=== PATIENT | male | born 1985 | race Caucasian/White ===

== ENCOUNTER 2023-03-04 12:25 | Emergency (ER) | payer OTHER ==
--- NOTE | 2023-03-04 12:35 | ED Physician Documentation ---
History of Present Illness - Stated complaint Stated Complaint: HORNET STING - Additonal information Additional information: 37-year-old male presents emergency department for evaluation after a hornet/bee envenomation. 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 He was stung on the left ear. He does have some left ear swelling. However shortly thereafter he began to have some generalized pruritus and developed some hives on his arms chest and abdomen. He had no shortness of breath, chest pain, tongue or lip swelling or any difficulty swallowing or speaking. EMS was summoned and they did give the patient 50 mg of Benadryl in route. He does have a large area of hives on his left arm but is otherwise comfortable. Denies any pertinent past medical history or medications. Review of Systems Constitutional: denies: Fever Nose: reports: Reviewed and negative Cardiac: reports: Reviewed and negative Respiratory: reports: Reviewed and negative Skin: reports: Rash, Bite / sting Musculoskeletal: reports: Reviewed and negative PD PAST MEDICAL HISTORY - Present Medications Home Medications: Ambulatory Orders Medication Instructions Recorded Confirmed EPINEPHrine [Epinephrine] 0.3 mg IJ ONCE PRN #1 each 03/04/23 Famotidine/Ca Carb/Mag Hydrox 1 each PO BID 2 Days #4 ea 03/04/23 [Pepcid Complete Tablet Chew] diphenhydrAMINE [Benadryl] 25 mg PO BID 2 Days #2 cap 03/04/23 predniSONE [Deltasone] 40 mg PO DAILY 2 Days #4 tablet 03/04/23 - Allergies Allergies/Adverse Reactions: Allergies Allergy/AdvReac Type Severity Reaction Status Date / Time albuterol Allergy Anaphylaxis Verified 03/04/23 12:33 bee venom protein (honey bee) Allergy Hives Verified 03/04/23 12:33 PD ED PE NORMAL - General General: Alert and oriented X 3, No acute distress, Well developed/nourished - HEENT HEENT: Atraumatic, Moist mucous membranes, Pharynx benign (No tongue, lip swelling. Normal phonation. Normal swallow.) - Neck Neck: Supple, no meningeal sign, No adenopathy - Cardiac Cardiac: RRR, No murmur, Strong equal pulses - Respiratory Respiratory: No respiratory distress, Clear bilaterally - Back Back: No CVA TTP, No spinal TTP - Derm Derm: Normal color, Warm and dry. No: No rash (Scattered urticaria on his chest and torso. Larger area of urticaria on the left wrist and forearm) Results - Vitals Vitals: Vital Signs - 24 hr 03/04/23 12:29 Temperature 36.4 C L Heart Rate 76 Respiratory 20 Rate Blood Pressure 143/81 H O2 Saturation 96 Oxygen O2 Source Room air PD Medical Decision Making - ED course Complexity details: reviewed results, re-evaluated patient, d/w patient ED course: 37-year-old male presents emergency department after hymenoptera envenomation while he was at his worksite. He was stung in the left ear. Shortly after getting stung he developed some hives especially on the left arm and torso. He had no tongue or lip swelling difficulty speaking or swallowing. EMS was summoned to the worksite they gave the patient 50 mg of Benadryl which seemed to improve the hives. Presentation in the emergency department he was alert and well-appearing. He did have some very mild hypertension. Clinically he had a systemic reaction though not anaphylaxis. Here in the emergency department I did give the patient a single dose of 125 mg Solu-Medrol IV as well as 40 mg of Pepcid. On reevaluation the hives have improved by about 80%. While here in the ER and on monitor he has had no further progression of symptoms feels comfortable with discharge home. I am recommending an additional 2 days of steroids, Benadryl and Pepcid. I discussed with the patient that the next bee sting could result in an anaphylactic reaction and because of this fear I am also prescribing an epinephrine pen though epinephrine was not administered with today's ED visit. He is discharged home in stable condition with usual emergent return precautions discussed for worsening symptoms Departure - Departure Disposition: 01 Home, Self Care Clinical Impression: Bee sting reaction Qualifiers: Encounter type: initial encounter Injury intent: accidental or unintentional Qualified Code(s): T63.441A - Toxic effect of venom of bees, accidental (unintentional), initial encounter Instructions: ED Bite Sting Insect Gen Allergic React Prescriptions: diphenhydrAMINE [Benadryl] 25 mg PO BID 2 Days #2 cap predniSONE [Deltasone] 40 mg PO DAILY 2 Days #4 tablet EPINEPHrine [Epinephrine] 0.3 mg IJ ONCE PRN #1 each PRN Reason: Anaphylaxis Famotidine/Ca Carb/Mag Hydrox [Pepcid Complete Tablet Chew] 1 each PO BID 2 Days #4 ea Comments: As discussed at the bedside it looks like you had a systemic though not an anaphylactic reaction to the bee sting today. You were given Benadryl by the paramedics and I did give you a dose of methylprednisolone or a steroid here in the ER and on reevaluation your hives are improving. I would like you to continue to take Benadryl 25 mg twice a day for the next several days as well as Pepcid 20 mg twice daily for the next 2 to 3 days. I think it would be important for you to finish an additional 2 days of prednisone which I have sent to the pharmacy. It is possible that in the future with other bee envenomation's you could have a severe life-threatening reaction called anaphylaxis. Because of this risk I am prescribing you an epinephrine pen that you should carry with you at all times. Please return immediately to the emergency department if you have any worsening symptoms, difficulty speaking swallowing breathing, tongue or lip swelling
[2023-03-04 12:36] VITALS: BP 143/81
[2023-03-04] MEDS: methylPREDNISolone SUCCINATE 125 MG/2 ML VIAL IVP STA (12:41)
[2023-03-04] MEDS: FAMOTIDINE 20 MG/2 ML VIAL IVP STA (12:43)
[2023-03-04] MEDS ORDERED: FAMOTIDINE 20 MG/2 ML VIAL IVP ONE (12:48)
== END 2023-03-04 13:45 | disposition home or self-care (01) ==
LOC: EDUNIT# → ED 12:25
DX: T63.441A Toxic effect of venom of bees, accidental (unintentional), initial encounter (principal)
CPT/HCPCS: 96374; 96375; 99283

== ENCOUNTER 2023-03-07 21:43 | Emergency (ER) | payer OTHER ==
[2023-03-07] MEDS ORDERED: SODIUM CHLORIDE 0.9% 1,000 ML IV STA (22:24)
[2023-03-07 22:34] LABS: BASOPHILS # (AUTO) 0.1 10^3/uL (0.0-0.1); BASOPHILS % (AUTO) 0.7 %; EOSINOPHILS # (AUTO) 0.1 10^3/uL (0.0-0.7); EOSINOPHILS % (AUTO) 1.4 %; HCT - HEMATOCRIT 41.6 % (42.0-52.0); HGB - HEMOGLOBIN 14.2 g/dL (14.0-18.0); LYMPHOCYTES % (AUTO) 28.4 %; MEAN CORPUSCULAR HGB CONC 34.1 g/dL (32.0-36.0); MEAN CORPUSCULAR VOLUME 90.8 fL (80.0-94.0); MEAN PLATELET VOLUME 9.8 fL (7.4-11.4); MONOCYTES # (AUTO) 0.6 10^3/uL (0.0-1.0); NEUTROPHILS # (AUTO) 4.3 10^3/uL (1.5-6.6); NEUTROPHILS % (AUTO) 61.1 %; PLT - PLATELET COUNT 246 10^3/uL (130-450); RED BLOOD COUNT 4.58 10^6/uL (4.70-6.10); RED CELL DISTRIBUTION WIDTH 12.3 % (12.0-15.0)
[2023-03-07 23:18] LABS: ALBUMIN 4.5 g/dL (3.2-5.5); ALBUMIN/GLOBULIN RATIO 1.5 (1.0-2.2); BILIRUBIN,TOTAL 0.4 mg/dL (0.2-1.0); CALCIUM 9.3 mg/dL (8.5-10.3); POTASSIUM 4.5 mmol/L (3.5-5.0); TOTAL PROTEIN 7.6 g/dL (6.7-8.2)
[2023-03-07 23:32] LABS: BILIRUBIN,URINE NEGATIVE (NEGATIVE); GLUCOSE, URINE (UA) NEGATIVE (NEGATIVE); KETONES,URINE (UA) NEGATIVE (NEGATIVE); LEUKOCYTE ESTERASE, URINE NEGATIVE (NEGATIVE); NITRITE,URINE NEGATIVE (NEGATIVE); OCCULT BLOOD,URINE NEGATIVE (NEGATIVE); PH,URINE 6.5 PH (5.0-7.5); PROTEIN,URINE NEGATIVE (NEGATIVE); UROBILINOGEN,URINE 0.2 (NORMAL) E.U./dL (NORMAL)
[2023-03-07 23:33] LABS: CLARITY,URINE CLEAR (CLEAR)
--- NOTE | 2023-03-07 23:41 | ED Physician Documentation ---
History of Present Illness - Stated complaint Stated Complaint: LIGHT HEADED/DIZZY/DIARRHEA - Chief complaint Chief Complaint: General - History obtained from History obtained from: Patient - Additonal information Additional information: 37-year-old man presented to the emergency department with jitteriness, anxiety, and dizziness intermittently today. He was treated with steroids, Benadryl, and Pepcid a few days ago for bee sting and has been taking a course of steroids but stopped it for the first time today. Denies other symptoms PD PAST MEDICAL HISTORY - Present Medications Home Medications: Ambulatory Orders Medication Instructions Recorded Confirmed EPINEPHrine [Epinephrine] 0.3 mg IJ ONCE PRN #1 each 03/04/23 Famotidine/Ca Carb/Mag Hydrox 1 each PO BID 2 Days #4 ea 03/04/23 [Pepcid Complete Tablet Chew] diphenhydrAMINE [Benadryl] 25 mg PO BID 2 Days #2 cap 03/04/23 predniSONE [Deltasone] 40 mg PO DAILY 2 Days #4 tablet 03/04/23 - Allergies Allergies/Adverse Reactions: Allergies Allergy/AdvReac Type Severity Reaction Status Date / Time albuterol Allergy Anaphylaxis Verified 03/04/23 12:33 bee venom protein (honey bee) Allergy Hives Verified 03/04/23 12:33 - Social History Does the pt smoke?: Yes Smoking Status: Current every day smoker PD ED PE NORMAL - Vitals Vital signs reviewed: Yes - General General: Alert and oriented X 3, No acute distress - HEENT HEENT: Atraumatic, PERRL, EOMI, Moist mucous membranes, Pharynx benign - Neck Neck: Supple, no meningeal sign - Cardiac Cardiac: RRR - Respiratory Respiratory: No respiratory distress, Clear bilaterally - Derm Derm: Normal color, Warm and dry - Extremities Extremities: No deformity - Neuro Neuro: No motor deficit, No sensory deficit - Psych Psych: Normal mood, Normal affect Results - Vitals Vitals: Vital Signs - 24 hr 03/07/23 21:47 Temperature 96.4 C H Heart Rate 92 Respiratory 18 Rate Blood Pressure 176/92 H O2 Saturation 97 Oxygen O2 Source Room air - Labs Labs: Laboratory Tests 03/07/23 03/07/23 03/07/23 22:30 22:30 23:17 WBC 7.0 RBC 4.58 L Hgb 14.2 Hct 41.6 L MCV 90.8 MCH 31.0 MCHC 34.1 RDW 12.3 Plt Count 246 MPV 9.8 Neut # (Auto) 4.3 Lymph # (Auto) 2.0 [place] # (Auto) 0.6 Eos # (Auto) 0.1 Baso # (Auto) 0.1 Absolute Nucleated RBC 0.00 Nucleated RBC % 0.0 Sodium 140 Potassium 4.5 Chloride 104 Carbon Dioxide 28 Anion Gap 8.0 BUN 18 Creatinine 1.0 Estimated GFR (MDRD) 85 L Glucose 100 Calcium 9.3 Total Bilirubin 0.4 AST 20 ALT 19 Alkaline Phosphatase 58 Total Protein 7.6 Albumin 4.5 Globulin 3.1 Albumin/Globulin Ratio 1.5 Lipase 31 Urine Color YELLOW Urine Clarity CLEAR Urine pH 6.5 Ur Specific [place] 1.010 Urine Protein NEGATIVE Urine Glucose (UA) NEGATIVE Urine Ketones NEGATIVE Urine Occult Blood NEGATIVE Urine Nitrite NEGATIVE Urine Bilirubin NEGATIVE Urine Urobilinogen 0.2 (NORMAL) Ur Leukocyte Esterase NEGATIVE Ur Microscopic Review NOT INDICATED Urine Culture Comments NOT INDICATED PD Medical Decision Making - ED course ED course: 37yM p/w dizziness and anxiety today after stopping his prednisone course he had been taking after allergic reaction to bee sting. patient otherwise well appearing with benign exam. cbc, abdominal panel within normal limits. discussed with patient and discussed return precautions. he can f/u with his primary care provider routinely. Departure - Departure Disposition: 01 Home, Self Care Clinical Impression: Anxiety, Dizziness, Feeling jittery Condition: Stable Comments: You are seen in the emergency department for medical evaluation. Your vital signs, exam, and lab work including CBC and abdominal panel looked normal. Please follow-up with your primary care provider routinely and return to the emergency department if you have other concerns
[2023-03-07 23:46] VITALS: BP 137/89
== END 2023-03-07 23:44 | disposition home or self-care (01) ==
LOC: ED 21:43
DX: F41.9 Anxiety disorder, unspecified (principal); R42 Dizziness and giddiness; R45.0 Nervousness; F17.200 Nicotine dependence, unspecified, uncomplicated
CPT/HCPCS: 36415; 80053; 81001; 81003; 83690; 85025; 87086; 99283

== ENCOUNTER 2023-04-11 16:32 | Emergency (ER) | payer OTHER ==
[2023-04-11] MEDS ORDERED: predniSONE 20 MG TABLET PO STA (16:47)
--- NOTE | 2023-04-11 16:50 | ED Physician Documentation ---
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 Today he was stung on the left forearm by a yellow jacket. He only developed pain at the site and this happened at 4:19 PM. He did not develop any symptoms of anaphylaxis. He did self inject EpiPen immediately afterward. Other than pain and swelling at the site on the left forearm he has no other symptoms. PD PAST MEDICAL HISTORY - Present Medications Home Medications: Ambulatory Orders Medication Instructions Recorded Confirmed EPINEPHrine [Epinephrine] 0.3 mg IJ ONCE PRN #1 each 03/04/23 04/11/23 EPINEPHrine [Epinephrine] 0.3 mg IJ ONCE PRN #2 each 04/11/23 predniSONE [Deltasone] 60 mg PO DAILY 2 Days #6 tablet 04/11/23 - Allergies Allergies/Adverse Reactions: Allergies Allergy/AdvReac Type Severity Reaction Status Date / Time albuterol Allergy Anaphylaxis Verified 04/11/23 16:40 bee venom protein (honey bee) Allergy Hives Verified 04/11/23 16:40 - Social History Does the pt smoke?: Yes Smoking Status: Current every day smoker PD ED PE NORMAL - Vitals Vital signs reviewed: Yes - General General: Alert and oriented X 3, No acute distress - HEENT HEENT: Pharynx benign - Respiratory Respiratory: No respiratory distress, Clear bilaterally - Abdomen Abdomen: Non tender - Derm Derm: Other (There is a red area about the size of a quarter on the posteromedial mid left forearm. No diffuse hives or other rash.) - Neuro Neuro: Alert and oriented X 3, Normal speech Results - Vitals Vitals: Vital Signs - 24 hr 04/11/23 04/11/23 16:35 17:03 Temperature 36.8 C Heart Rate 91 73 Respiratory 18 18 Rate Blood Pressure 133/74 H 128/70 O2 Saturation 97 96 Oxygen O2 Source Room air PD Medical Decision Making - ED course ED course: He was observed for about 2 hours after the sting without any development of any Symptoms concerning for anaphylaxis. [id number] completed and filed. Departure - Departure Disposition: 01 Home, Self Care Clinical Impression: Local reaction to bee sting Qualifiers: Encounter type: initial encounter Injury intent: accidental or unintentional Qualified Code(s): T63.441A - Toxic effect of venom of bees, accidental (unintentional), initial encounter Condition: Good Record reviewed to determine appropriate education?: Yes Instructions: ED Bite Sting Insect Local Allergic React Prescriptions: predniSONE [Deltasone] 60 mg PO DAILY 2 Days #6 tablet EPINEPHrine [Epinephrine] 0.3 mg IJ ONCE PRN #2 each PRN Reason: Allergy Symptoms Forms: PCP List
[2023-04-11 17:55] VITALS: BP 120/72; O2SAT 98
== END 2023-04-11 17:51 | disposition home or self-care (01) ==
LOC: ED 16:32
DX: T63.461A Toxic effect of venom of wasps, accidental (unintentional), initial encounter (principal); F17.200 Nicotine dependence, unspecified, uncomplicated
CPT/HCPCS: 99282; 99283; J7512

== ENCOUNTER 2023-08-16 08:27 | Emergency (ER) | payer OTHER ==
[2023-08-16 08:45] VITALS: BP 139/81; O2SAT 99
--- NOTE | 2023-08-16 09:15 | ED Physician Documentation ---
PD HPI BACK PAIN - Stated complaint Stated Complaint: BACK INJ - Chief complaint Chief Complaint: Back Pain - History obtained from History obtained from: Patient - Additional information Additional information: Patient is a 37-year-old male presenting for evaluation of low back pain that started approximately 30 to 40 minutes ago while at work. Patient was lifting an 80 pound wheelbarrow and twisted and felt a pop in his back that caused sudden pain. The pain does not radiate and is localized to the lower back. Denies prior injuries that he is aware of to the back but does report at times he has had pain in the back that he attributes to usual aches and pains from his work. Denies numbness in his legs. No bowel or bladder incontinence. No fever. No IV drug use. Does not take a blood thinner. No falls or other injury. Review of Systems Constitutional: denies: Fever Cardiac: denies: Chest pain / pressure Respiratory: denies: Dyspnea GI: denies: Abdominal Pain, Vomiting : denies: Incontinent Musculoskeletal: reports: Back pain PD PAST MEDICAL HISTORY - Past Medical History Past Medical History: No - Past Surgical History Past Surgical History: Yes - Present Medications Home Medications: Ambulatory Orders Medication Instructions Recorded Confirmed EPINEPHrine [Epinephrine] 0.3 mg IJ ONCE PRN #1 each 03/04/23 04/11/23 EPINEPHrine [Epinephrine] 0.3 mg IJ ONCE PRN #2 each 04/11/23 predniSONE [Deltasone] 60 mg PO DAILY 2 Days #6 tablet 04/11/23 Cyclobenzaprine [Flexeril] 10 mg PO TID PRN #20 tablet 08/16/23 Ibuprofen [Advil] 600 mg PO Q6HR PRN #30 tablet 08/16/23 Lidocaine Patch 5% [Lidoderm Patch] 1 patch TOP DAILY PRN #10 patch 08/16/23 - Allergies Allergies/Adverse Reactions: Allergies Allergy/AdvReac Type Severity Reaction Status Date / Time albuterol Allergy Anaphylaxis Verified 04/11/23 16:40 bee venom protein (honey bee) Allergy Hives Verified 04/11/23 16:40 - Social History Does the pt smoke?: Yes Smoking Status: Current every day smoker PD ED PE NORMAL - General General: Alert and oriented X 3, No acute distress, Well developed/nourished - HEENT HEENT: Atraumatic, Moist mucous membranes, Pharynx benign - Neck Neck: Supple, no meningeal sign - Cardiac Cardiac: RRR, Strong equal pulses - Respiratory Respiratory: No respiratory distress, Clear bilaterally - Abdomen Abdomen: Soft, Non tender, Non distended - Back Back: No spinal TTP, Other (Able to bend and twist quite well to remove his work boots and socks despite the pain) - Derm Derm: Warm and dry - Extremities Extremities: Normal ROM s pain, Other (Strong distal pulses) - Neuro Neuro: Alert and oriented X 3, No motor deficit, No sensory deficit, Normal speech Results - Vitals Vitals: Vital Signs - 24 hr 08/16/23 08:41 Temperature 36.7 C Heart Rate 68 Respiratory 16 Rate Blood Pressure 139/81 H O2 Saturation 99 Oxygen O2 Source Room air PD Medical Decision Making - ED course ED course: Patient is a 37-year-old male with atraumatic low back pain after lifting a wheelbarrow. Neurovascularly intact and ambulating without any difficulty. He is also able to bend and move around without significant disability. Has no midline tenderness. No red flag signs or symptoms regards to his back pain. Do not feel an x-ray is indicated or would be particularly helpful in a young person without severe trauma. Discussed options for treatment and he is agreeable to trial of anti-inflammatories, lidocaine patches and muscle relaxers. Patient counseled on need for close follow-up as well as concerning symptoms to return for. Departure - Departure Disposition: 01 Home, Self Care Clinical Impression: Low back pain Condition: Stable Instructions: ED Low Back Pain Injury Prescriptions: Ibuprofen [Advil] 600 mg PO Q6HR PRN #30 tablet PRN Reason: Moderate Pain (Level 4-6) Cyclobenzaprine [Flexeril] 10 mg PO TID PRN #20 tablet PRN Reason: Spasms Lidocaine Patch 5% [Lidoderm Patch] 1 patch TOP DAILY PRN #10 patch PRN Reason: pain Comments: You were evaluated for low back pain from an injury at work. At this time I do not feel an x-ray would be helpful as I would not expect you to have a broken bone given your age as well as the mechanism. I am starting on medications to help with your pain including a muscle relaxer which may make you drowsy called cyclobenzaprine, lidocaine patches and ibuprofen. These prescriptions have been sent to [facility] in [place]. I would recommend taking it easy and avoiding any activities that would exacerbate your back pain such as lifting, bending, twisting. I would also recommend close follow-up with your primary care provider as you may need further testing or evaluation if your symptoms or not getting better. Return to the ER if you have worsening pain, trouble controlling your bowel or bladder function, numbness that is new, or any other concerns. Discharge Date/Time: 08/16/23 09:30
== END 2023-08-16 09:30 | disposition home or self-care (01) ==
LOC: ED 08:27
DX: M54.50 Low back pain, unspecified (principal); F17.200 Nicotine dependence, unspecified, uncomplicated
CPT/HCPCS: 99283